=== PATIENT | male | born 1940 | race African-American/Black ===

== ENCOUNTER 2019-01-27 18:19 | Emergency (ER) | payer BC ==
[~2019-01-27] VITALS: Ht 190.5 cm; Wt 77.1 kg
--- NOTE | ~2019-01-27 | EMS ---
[facility] [address] [place] [address] EMS Patient Care Report Name: SHIRA JAMES Room #: DEP AKASH Mnceal#: [id number] Admission: 01/27/19 ������������������ Attend Phys: Discharge: 01/27/19 ������������������ Date of : 42 Report #: [id number] THIS REPORT FOR: //name// Report Transmitted: 01/28/2019 08:01 EMS Care Summary [place], [place]/[facility] Incident [id number] @ 01/27/2019 17:49 [address]ident [address] [facility] [place] Patient BARBARA GRAFF Male, 78 Years 1940 Patient Address [address] [place] [address] Patient History End Stage Renal Disease (ESRD),Amputee,Atrial Fibrillation,Colostomy,Dialysis,Type 2 Diabetes, Patient Allergies No known allergies, Patient Medications Eliquis, Gabapentin, Humalog, Lipitor, Amlodipine, Docusate Sodium, Amiodarone, Lucan, Coreg, Chief Complaint LOW HEMAGLOBIN Disposition Transported No Lights/[place] Reason Sick Person Transported To [facility] Narrative PT FOUND SITTING IN WHEELCHAIR. STAFF STATES THAT PT HAS CRITICAL LABS AND [facility] [address] [place] [address] EMS Patient Care Report Name: SHIRA JAMES JR Room #: DEP ER Elizabet#: [id number] Admission: 01/27/19 ������������������ Attend Phys: Discharge: 01/27/19 ������������������ Date of : 42 Report #: [id number] NEEDS TO GO FOR EVALUATION. PT DENIES SPECIFIC COMPLAINTS. TRANSPORTED WITHOUT INCIDENT. Initial Vitals @18:10P: 60,R: 18,BP: 182/85,Pain: 0/10,GCS: 15,SpO2: 97,Revised Trauma: 12, Assessments @18:05MENTAL:No Abnormalities,SKIN:No Abnormalities,HEENT:Head/Face: No Abnormalities,Eyes: No Abnormalities,Neck/Airway: No Abnormalities,LUNG SOUNDS:ABDOMEN:PELVIS//GI:EXTREMITIES:Right Leg: Other,Left Arm: No Abnormalities,Right Arm: No Abnormalities,Left Leg: No Abnormalities,PULSE:NEURO:No Abnormalities, Impression Generalized Weakness Procedures @18:05ALS AssessmentResponse: UnchangedSucceeded Timeline 17:48,Call Received 17:48,Dispatch Notified 17:49,Dispatched 17:50,En Route 18:01,On Scene 18:05,At Patient 18:05,ALS Assessment,Response: UnchangedSucceeded, 18:10,BP: 182/85 M,PULSE: 60,RR: 18 R,SPO2: 97 Ox,ETCO2: ,BG: ,PAIN: 0,GCS: 15, 18:11,Depart Scene 18:22,At Destination 18:32,Call Closed Disclaimer v1.1 Copyright 2019 [email or web address] This EMS Care Summary contains data elements from the applicable legal record (which may be displayed differently). It is designed to provide pertinent information for the following purposes: continuity of care, clinical quality, and state data reporting. The complete legal record is available to ED staff and administrators of the receiving hospital in [facility]'s Patient Tracker. All data is provided "as is."
[2019-01-27 19:06] LABS: HEMATOCRIT 28.1 % (42.0-52.0); HEMOGLOBIN 8.9 gm/dL (14.0-18.0); MCH 25.4 pg (26.0-34.0); MCHC 31.6 g/dL (28.0-37.0); MCV 80.3 fL (80.0-100.0); PLATELET COUNT 362 thou/uL (150-400); RDW 22.6 % (10.5-14.5); WBC 5.6 thou/uL (4.0-11.0)
[2019-01-27 19:15] LABS: ANION GAP 10 mmol/L (7-16); BUN 18 mg/dL (7-18); CALCIUM 9.2 mg/dL (8.5-10.1); CHLORIDE 97 mmol/L (98-107); CO2 29 mmol/L (21-32); CREATININE 3.8 mg/dL (0.7-1.3); GLUCOSE 141 mg/dL (74-106); POTASSIUM 4.7 mmol/L (3.5-5.1); SODIUM 136 mmol/L (136-145)
[2019-01-27 19:24] LABS: TROPONIN-I <0.06 ng/mL (<0.06)
[2019-01-27] MEDS ORDERED: NORVASC2.5 MG PO (19:38)
[2019-01-27] MEDS ORDERED: PACERONE200 MG PO (19:38)
[2019-01-27] MEDS ORDERED: ELIQUIS2.5 MG PO (19:39)
[2019-01-27] MEDS ORDERED: COREG25 MG PO (19:40)
[2019-01-27] MEDS ORDERED: BROVANA15 MCG/2 M INH (19:40)
[2019-01-27] MEDS ORDERED: PULMICORT0.25 MG/3 INH (19:40)
[2019-01-27] MEDS ORDERED: LIPITOR40 MG PO (19:40)
[2019-01-27] MEDS ORDERED: COLACE100 MG PO (19:41)
[2019-01-27] MEDS ORDERED: ZETIA10 MG PO (19:41)
[2019-01-27] MEDS ORDERED: HUMALOG100 UNIT/1 SUBQ (19:42)
[2019-01-27] MEDS ORDERED: NEURONTIN 300M300 M2 PO (19:42)
[2019-01-27] MEDS ORDERED: PERCOCET PO (19:42)
[2019-01-27] MEDS ORDERED: MIRALAX17 GM PO (19:42)
[2019-01-27 19:49] LABS: ABSOLUTE NEUTROPHILS 4.9 thou/uL (1.4-8.2); ANISOCYTOSIS 3+
[2019-01-27 19:50] LABS: POLYCHROMASIA OCCASIONAL
[2019-01-27 19:51] LABS: TARGET CELLS OCCASIONAL
[2019-01-27 21:03] VITALS: BP 171/91
--- NOTE | 2019-01-28 14:07 | EKG ---
[address] [address] [place] [address] ELECTROCARDIOGRAM REPORT Name: SHIRA JAMES Room #: DEP Elizabet#: [id number] ������������������ Admission: 01/27/19 ������������������ Attend Phys: Discharge: 01/27/19 ������������������ Date of : 42 Report #: [id number] ����������������������������������������������������������������� [id number] THIS REPORT FOR: //name// [facility] ED Test Date: 2019-01-27 Test Time: 19:19:21 Pat Name: SHIRA JAMES Department: Room: Gender: M Channel Process Supervisor: : 1940 Requested By: Juan Daniel Freedman Order Number: [id number] MD: Renard Castaneda Measurements Intervals Searchlight Rate: 61 P: NV: QRS: -37 QRSD: 102 T: 8 QT: 437 QTc: 441 Interpretive Statements Sinus rhythm Left axis deviation Borderline low voltage, extremity leads No previous ECG available for comparison Electronically Signed On 01-28-2019 14:06:59 CDT by Renard Castaneda [email or web address] ��������������������������������������������� <ELECTRONICALLY SIGNED> ���������������������������������������� By: Renard Castaneda MD ��������������������������������������������� 01/28/19 1406 [id number] Renard Castaneda MD /ROGER
== END 2019-01-27 21:10 | disposition home or self-care (01) ==
LOC: EDBD 18:19 → ER 18:19
PROVIDERS: Emergency Medicine
DX: D64.9 Anemia, unspecified (principal)